=== PATIENT | male | born 1960 | race Caucasian/White ===

== ENCOUNTER 2018-02-20 18:30 | Emergency (ER) | payer BC ==
[2018-02-21] MEDS: VANCOMYCIN 1 GM (PMX) 250 ML IVPB (02:32)
[2018-02-21] MEDS: NICARDipine HCL 30 MG CAPSULE PO (02:32)
[2018-02-21] MEDS: SOD CHLORIDE 0.9% 1,000 ML IV (02:32)
[2018-02-21 03:11] LABS: ADD MAN DIFF? NO
[2018-02-21 03:14] LABS: WHITE BLOOD COUNT 6.5 10^3/ul (4.8-10.8)
[2018-02-21 03:14] LABS: BASOPHILS % 0.6 % (0.0-2.0); EOSINOPHILS # 0.6 10^3/ul (0.0-0.5); EOSINOPHILS % 9.5 % (0.0-7.0); HEMATOCRIT 35.4 % (42.0-52.0); HEMOGLOBIN 11.3 g/dl (14.0-18.0); LYMPHOCYTES # 1.9 10^3/ul (0.8-2.9); LYMPHOCYTES % 29.3 % (15.0-51.0); MEAN CORPUSCULAR HEMOGLOBIN 30.6 pg (29.0-33.0); MEAN CORPUSCULAR HGB CONC 31.9 g/dl (32.0-37.0); MEAN CORPUSCULAR VOLUME 95.9 fl (82.0-101.0); MEAN PLATELET VOLUME 10.4 fl (7.4-10.4); MONOCYTE # 0.9 10^3/ul (0.3-0.9); MONOCYTES % 13.7 % (0.0-11.0); NEUTROPHILS % 46.7 % (39.0-77.0); PLATELET COUNT 224 10^3/UL (140-415); RED BLOOD COUNT 3.69 10^6/ul (4.70-6.10); RED CELL DISTRIBUTION WIDTH 12.9 % (11.5-14.5)
[2018-02-21 03:34] LABS: ANION GAP 15 (8-16); BLOOD UREA NITROGEN 27 mg/dl (7-20); CARBON DIOXIDE 27 mmol/L (21-31); CHLORIDE 105 mmol/L (97-110); GLUCOSE 295 mg/dl (70-220); POTASSIUM 4.4 mmol/L (3.5-5.1); SODIUM 143 mmol/L (135-144)
[2018-02-21 03:48] LABS: TROPONIN-I < 0.012 ng/ml (0.000-0.120)
[2018-02-21] MEDS: AMLODIPINE 10 MG TAB PO (04:52)
== END 2018-02-21 05:21 | disposition home or self-care (01) ==
LOC: E/R 18:30
DX: L03.031 Cellulitis of right toe (principal); E11.65 Type 2 diabetes mellitus with hyperglycemia; I10 Essential (primary) hypertension; Z79.82 Long term (current) use of aspirin; Z79.4 Long term (current) use of insulin; Z87.891 Personal history of nicotine dependence
CPT/HCPCS: 36415; 73630; 80048; 84484; 85025; 87040; 96374; 99284-25